=== PATIENT | male | born 1960 | race Caucasian/White ===

== ENCOUNTER 2020-05-14 20:15 | Emergency (ER) | payer BC ==
[2020-05-14 20:30] VITALS: BP 145/85; PULSE 63
[2020-05-14] MEDS: Diphtheria,Pertussis(Acell),Tetanus Vaccine 0.5 ML Syringe IM ONE (20:46)
[2020-05-14] MEDS: Bacitracin Oint 1 GM U/D Packet TOP ONE (20:47)
--- NOTE | 2020-05-14 20:48 | EDM.PDOC ---
ED HPI GENERAL MEDICAL PROBLEM - General Chief Complaint: Laceration Stated Complaint: FISH HOOK LT HAND MIDDLE FINGER Time Seen by Provider: 05/14/20 20:25 Source of Information: Reports: Patient, Old Records History Limitations: Reports: No Limitations - History of Present Illness INITIAL COMMENTS - FREE TEXT/NARRATIVE: 60 yo male got a single barbed fish hook in his L long finger distal pad just before arrival. Last tetanus was 7 yrs ago. Onset: Today, Sudden Onset Date: 05/14/20 Duration: Minutes: Location: Reports: Upper Extremity, Left Quality: Reports: Sharp Severity: Mild Improves with: Reports: None Worsens with: Reports: Other (moving hook) Context: Reports: Trauma Associated Symptoms: Reports: No Other Symptoms Treatments [employer]: Reports: Other (see below) (none) - Related Data Allergies Allergy/AdvReac Type Severity Reaction Status Date / Time No Known Allergies Allergy Verified 01/27/13 11:04 Past Medical History - Past Health History Medical/Surgical History: Denies Medical/Surgical History Other Musculoskeletal History: hx finger fx - Infectious Disease History Infectious Disease History: Reports: Chicken Pox Social & Family History - Family History Family Medical History: No Pertinent Family History - Tobacco Use Tobacco Use Status *Q: Never Tobacco User Second Hand Smoke Exposure: No - Caffeine Use Caffeine Use: Reports: None - Recreational Drug Use Recreational Drug Use: No ED ROS GENERAL - Review of Systems Review Of Systems: See Below Constitutional: Reports: No Symptoms Skin: Reports: Wound (puncture) Neurological: Reports: No Symptoms ED EXAM, SKIN/RASH Exam: See Below Exam Limited By: No Limitations General Appearance: Alert, WD/WN, No Apparent Distress Extremities: Other (fish hook in hernandez aspect of distal pad of L long finger. ) Neurological: Alert, Oriented, CN II-XII Intact, Normal Cognition, No Motor/Sensory Deficits Psychiatric: Normal Affect, Normal Mood Skin: Warm, Dry, Normal Color, No Rash, Wound/Incision (puncture) ED SKIN PROCEDURES - Foreign Body Removal Indication:: Fish hook in finger Consent Obtained:: Patient Performing Doctor:: Javier Bowens Foreign Body Other Location Comment:: L long finger tip Anesthesia Type: Local (1% lidocaine) Complications:: No Comments:: area prep'd with alcohol. #18 g needle used to cover camryn and fish hook then backed out. Bacitracin and Band-Aid applied per RN. Tetanus given. Course - Vital Signs Last Recorded V/S: Last Vital Signs Temp 36.1 C 05/14/20 20:34 Pulse 63 05/14/20 20:34 Resp 12 05/14/20 20:34 BP 145/85 H 05/14/20 20:34 Pulse Ox 97 05/14/20 20:34 - Orders/Labs/Meds Orders: Active Orders 24 hr Category Date Time Status Vaccines to be Administered [RC] PER UNIT ROUTINE Care 05/14/20 20:41 Ordered Bacitracin [Bacitracin Oint 1 GM] Med 05/14/20 20:41 Once 1 dose TOP ONETIME ONE Diphth,Pertuss(Acell),Tet Vac [Boostrix] Med 05/14/20 20:41 Once 0.5 ml IM .ONCE ONE Medication Orders Bacitracin (Bacitracin Oint 1 Gm) 1 dose TOP ONETIME ONE Stop: 05/14/20 20:42 Diphtheria/Tetanus/Acell Pertussis (Boostrix) 0.5 ml IM .ONCE ONE Stop: 05/14/20 20:42 Meds: Medications Generic Name Dose Route Start Last Admin Trade Name Freq PRN Reason Stop Dose Admin Bacitracin 1 dose 05/14/20 20:41 Bacitracin Oint 1 Gm TOP 05/14/20 20:42 ONETIME ONE Diphtheria/Tetanus/Acell Pertussis 0.5 ml 05/14/20 20:41 Boostrix IM 05/14/20 20:42 .ONCE ONE Departure - Departure Time of Disposition: 20:48 Disposition: Home, Self-Care 01 Condition: Good Clinical Impression: Fish hook injury of finger of left hand Qualifiers: Encounter type: initial encounter Qualified Code(s): S69.92XA - Unspecified injury of left wrist, hand and finger(s), initial encounter - Discharge Information *PRESCRIPTION DRUG MONITORING PROGRAM REVIEWED*: Not Applicable *COPY OF PRESCRIPTION DRUG MONITORING REPORT IN PATIENT GAGE: Not Applicable Instructions: Puncture Wound, [id number] Referrals: Ishan Chicas MD [Primary Care Provider] - Additional Instructions: Keep area clean with soap and water. Acetaminophen for pain relief. Recheck for signs of infection. Sepsis Event Note (ED) - Evaluation Sepsis Screening Result: No Definite Risk - Focused Exam Vital Signs: Vital Signs Temp Pulse Resp BP Pulse Ox 05/14/20 20:34 36.1 C 63 12 145/85 H 97 05/14/20 20:29 36.1 C 63 12 145/85 H 97 - My Orders Last 24 Hours: My Active Orders 05/14/20 20:41 Vaccines to be Administered [RC] PER UNIT ROUTINE Bacitracin [Bacitracin Oint 1 GM] 1 dose TOP ONETIME ONE Diphth,Pertuss(Acell),Tet Vac [Boostrix] 0.5 ml IM .ONCE ONE - Assessment/Plan Last 24 Hours: My Active Orders 05/14/20 20:41 Vaccines to be Administered [RC] PER UNIT ROUTINE Bacitracin [Bacitracin Oint 1 GM] 1 dose TOP ONETIME ONE Diphth,Pertuss(Acell),Tet Vac [Boostrix] 0.5 ml IM .ONCE ONE
== END 2020-05-14 20:55 | disposition home or self-care (01) ==
LOC: JP.ED 20:15
DX: S60.453A Superficial foreign body of left middle finger, initial encounter (principal); Z23 Encounter for immunization; W45.8XXA Other foreign body or object entering through skin, initial encounter
CPT/HCPCS: 10120; 90471; 90715; 99283; 99283-25

== ENCOUNTER 2023-06-06 07:20 | Day surgery (SDC) | payer BC ==
[2023-06-06] MEDS ORDERED: fentaNYL 50 MCG/ML SDV ONE (08:08)
[2023-06-06] MEDS ORDERED: Propofol 200 MG/20 ML SDV ONE (08:08)
[2023-06-06] MEDS ORDERED: Midazolam 1 MG/ML 2 ML SDV ONE (08:08)
[2023-06-06] MEDS ORDERED: Lactated Ringers 1,000 ML IV SCH (08:30)
[2023-06-06 10:21] VITALS: BP 111/87; PULSE 53
== END 2023-06-06 10:42 | disposition home or self-care (01) ==
LOC: JP.SDS 07:20
PROVIDERS: ATTEND Student in an Organized Health Care Education/Training Program
DX: Z12.11 Encounter for screening for malignant neoplasm of colon (principal); D12.5 Benign neoplasm of sigmoid colon; K57.30 Diverticulosis of large intestine without perforation or abscess without bleeding
CPT/HCPCS: 45380; 88305; J2250; J2704; J3010; J7120